=== PATIENT | male | born 1975 | race Caucasian/White ===

== ENCOUNTER → 2019-09-13 09:16 | Outpatient (CLI) | payer BC, SELFPAY ==
--- NOTE | ~2019-09-13 | MR_ITS ---
EXAMINATION: MR cervical spine wo con DATE: 09/13/2019 09:58 INDICATION: Cervical radiculopathy. TECHNIQUE: Magnetic resonance imaging (MRI) of the cervical spine was performed without intravenous c ontrast. Sequences included sagittal T2-weighted FSE, sagittal T2-weighted FS FSE, sagittal T1-weight ed FSE, axial MERGE, and axial T2-weighted FSE. COMPARISON: None FINDINGS: There is hypolordosis of cervical spine. Vertebral body heights and intervertebral disc hei ghts are normal. The spinal cord signal intensity is normal. The following disc levels are specifical ly discussed: C2-C3: The disc does not extend beyond the endplate margin. There is no uncovertebral joint osteoarth ritis. There is mild bilateral facet joint osteoarthritis. There is no neural foraminal stenosis. The re is no central canal stenosis. C3-C4: There is a central protrusion. There is mild right uncovertebral joint osteoarthritis. There i s mild bilateral facet joint osteoarthritis. There is mild right neural foraminal stenosis. There is mild central canal stenosis with ventral indentation of the spinal cord. C4-C5: There is a central protrusion. There is mild bilateral uncovertebral joint osteoarthritis. The re is mild right facet joint osteoarthritis. There is mild left neural foraminal stenosis. There is m ild central canal stenosis with ventral indentation of the spinal cord. C5-C6: The disc is bulging. There is mild right and moderate left uncovertebral joint osteoarthritis. There is no facet joint osteoarthritis. There is mild left neural foraminal stenosis. There is mild central canal stenosis with ventral indentation of the spinal cord. C6-C7: There is a central protrusion. There is mild lateral uncovertebral joint osteoarthritis. There is mild right facet joint osteoarthritis. There is no neural foraminal stenosis. There is mild centr al canal stenosis. C7-T1: There is a central protrusion. There is no uncovertebral joint osteoarthritis. There is mild b ilateral facet joint osteoarthritis. There is mild bilateral neural foraminal stenosis. There is mild central canal stenosis. IMPRESSION: 1. Mild cervical spondylosis. Reviewed, dictated and finalized at location A. [employer]
== END ==
DX: M47.22 Other spondylosis with radiculopathy, cervical region (principal)
CPT/HCPCS: 72141

== ENCOUNTER → 2021-05-25 08:15 | Outpatient (CLI) | payer BC, SELFPAY ==
--- NOTE | ~2021-05-25 | CT_ITS ---
EXAMINATION: CT pelvis wo con DATE: 05/25/2021 09:01 INDICATION: Sacrococcygeal disorders. Left-sided low back pain. Left leg pain. Coccygeal pain. TECHNIQUE: Computed tomography (CT) of the pelvis was performed without intravenous contrast. Automat ed exposure control and iterative reconstruction technique were employed. The dose-length product was 644.62 mGy-cm. COMPARISON: None FINDINGS: There is a left inguinal hernia containing fat. There is diverticulosis of the colon withou t evidence of diverticulitis. There is mild subcutaneous fat stranding in left anterior abdominal wal l, likely inflammation or scarring. Bone alignment is normal. No fracture. There is mild osteoarthrit is of the hips. There is mild osteoarthritis of the sacroiliac joints. No evidence of inflammatory ar thropathy. IMPRESSION: 1. Left inguinal hernia containing fat. 2. Mild osteoarthritis of the hips. Reviewed, dictated and finalized at location A.
--- NOTE | ~2021-05-25 | CT_ITS ---
EXAMINATION: CT lumbar spine wo con DATE: 05/25/2021 09:01 INDICATION: Spondylosis without myelopathy or radiculopathy, lumbar region. TECHNIQUE: Computed tomography (CT) of the lumbar spine was performed without intravenous contrast. A utomated exposure control and iterative reconstruction technique were employed. The dose-length produ ct was 930.57 mGy-cm. COMPARISON: None FINDINGS: There is 3 degrees levocurvature of lumbar spine. Vertebral body heights and intervertebral disc heights are normal. The following disc levels are specifically discussed: L1-L2: The disc does not extend beyond the endplate margin. There is mild bilateral facet joint osteo arthritis. There is no neural foraminal stenosis. There is no central canal stenosis. L2-L3: The disc does not extend beyond the endplate margin. There is mild bilateral facet joint osteo arthritis. There is no neural foraminal stenosis. There is no central canal stenosis. L3-L4: The disc is bulging. There is mild bilateral facet joint osteoarthritis. There is mild left ne ural foraminal stenosis. There is mild central canal stenosis. L4-L5: The disc is bulging. There is mild bilateral facet joint osteoarthritis. There is mild right a nd moderate left neural foraminal stenosis. There is mild central canal stenosis. L5-S1: There is mild lumbar spondylosis. There is severe right and mild left facet joint osteoarthrit is. There is mild right neural foraminal stenosis. There is mild central canal stenosis. IMPRESSION: 1. Moderate right neural foraminal stenosis at L4-L5. Otherwise mild lumbar spondylosis. Reviewed, dictated and finalized at location A. IMPRESSION: 1. Moderate right neural foraminal stenosis at L4-L5. Otherwise mild lumbar spo ndylosis.
== END ==
DX: M53.3 Sacrococcygeal disorders, not elsewhere classified (principal); K40.90 Unilateral inguinal hernia, without obstruction or gangrene, not specified as recurrent; M17.0 Bilateral primary osteoarthritis of knee; M47.817 Spondylosis without myelopathy or radiculopathy, lumbosacral region; M48.07 Spinal stenosis, lumbosacral region
CPT/HCPCS: 72131; 72192

== ENCOUNTER 2023-02-06 17:20 | Emergency (ER) | payer BC, SELFPAY ==
[2023-02-06 17:28] VITALS: BP 145/94; PULSE 89; RESP 16; TEMP 36.9; O2SAT 98
--- NOTE | 2023-02-06 17:41 | ED.URI ---
HPI - URI/Sore Throat General Chief Complaint: Upper Respiratory Infection Stated Complaint: Sore throat, dizzy Time Seen by Provider: 02/06/23 17:55 Source: patient and RN notes reviewed Mode of arrival: ambulatory Limitations: no limitations History of Present Illness HPI Narrative: 47-year-old male presents with concern for sore throat. Reports symptoms started yesterday. Reports he sometimes feels dizzy when he is walking. He denies fever, aches, chills, sweats. He reports postnasal drainage. MD elicited complaint: sore throat Related Data Home Medications Medication Instructions Recorded Confirmed amlodipine 5 mg tablet mg 02/06/23 aripiprazole 2 mg tablet mg 02/06/23 duloxetine 60 mg capsule,delayed mg PO 02/06/23 release latanoprost 0.005 % eye drops drp 02/06/23 lisinopril 10 mg tablet mg 02/06/23 magnesium oxide 400 mg (241.3 mg mg 02/06/23 magnesium) tablet metformin 500 mg tablet mg 02/06/23 metoprolol succinate 50 mg mg PO 02/06/23 tablet,extended release 24 hr potassium chloride 20 mEq meq PO 02/06/23 tablet,extended release(part/cryst) (Klor-Con M) rosuvastatin 10 mg tablet mg 02/06/23 semaglutide 1 mg/dose (4 mg/3 mL) mg subcut 02/06/23 subcutaneous pen injector (Ozempic) solriamfetol 150 mg tablet (Sunosi) mg 02/06/23 testosterone cypionate 200 mg/mL mg 02/06/23 intramuscular oil timolol maleate 0.5 % eye drops drp 02/06/23 Allergies Allergy/AdvReac Type Severity Reaction Status Date / Time No Known Allergies Allergy Verified 02/06/23 17:41 Review of Systems Review of Systems: CONSTITUTIONAL: Denies malaise, chills, sweats, or fever. EYES: Denies visual changes, redness, or discharge. ENT: Denies rhinorrhea, congestion, sinus pain, otalgia. Reports postnasal drainage, sore throat. CARDIOVASCULAR: Denies chest pain, palpitations, or edema. RESPIRATORY: Denies cough. Denies dyspnea. GASTROINTESTINAL: Denies abdominal pain, nausea, vomiting, diarrhea SKIN: Denies rash or itching. MUSCULOSKELETAL: Denies myalgia. NEUROLOGIC: Denies headache. All systems reviewed & are unremarkable except as noted in HPI and below PMFSH Comments At time of signature, agree with nursing past medical, surgical, social and family history. There is no relevant family history pertinent to the presenting complaint Exam Narrative: GENERAL: Well-appearing, well-nourished, and in no acute distress. HEAD: Normocephalic EYES: PERRLA, conjunctivae clear ENT: Nares clear, clear discharge. Mucous membranes moist. TM pearly burns with dull light reflex bilaterally; no tragal tenderness. Oropharynx not erythematous without lesions. Tonsils not enlarged and without exudate, no drooling, no hoarseness, no trismus, uvula midline. NECK: Supple. No lymphadenopathy CHEST: Clear to auscultation, breath sounds equal. No wheezing, rhonchi, rales, or stridor. No respiratory distress, speaks in full sentences. HEART: Regular rate and rhythm. No murmur heard. SKIN: Warm, dry, no rash. NEURO: Alert and oriented x3. PSYCH: Normal mood and affect Course Course Emergency Course: Patient is aware of diagnosis, understands and agrees to treatment plan. Anticipatory guidance given. Patient agrees to follow-up as directed and is aware of reasons to seek care at the emergency department. Portions of this record may have been created with voice recognition software Level of Care: Express Care Visit Vital Signs Vital signs: Vital Signs Temperature 98.5 F 02/06/23 17:28 Pulse Rate 89 02/06/23 17:28 Respiratory Rate 16 02/06/23 17:28 Blood Pressure 145/94 H 02/06/23 17:28 Pulse Oximetry 98 02/06/23 17:28 Oxygen Delivery Room Air 02/06/23 17:28 Temperature 98.5 F 02/06/23 17:28 Pulse Rate 89 02/06/23 17:28 Respiratory Rate 16 02/06/23 17:28 Blood Pressure 145/94 H 02/06/23 17:28 Pulse Oximetry 98 02/06/23 17:28 Oxygen Delivery Room Air 02/06/23 17:28
[2023-02-06 17:57] VITALS: BP 145/94; PULSE 89; RESP 16; TEMP 36.9; O2SAT 98
== END 2023-02-06 18:06 | disposition home or self-care (01) ==
PROVIDERS: Emergency Provider Nurse Practitioner
DX: J06.9 Acute upper respiratory infection, unspecified (principal); E78.00 Pure hypercholesterolemia, unspecified; I10 Essential (primary) hypertension; H40.9 Unspecified glaucoma
CPT/HCPCS: 87081; 87880; 99213; G0463